=== PATIENT | female | born 1970 | race Caucasian/White ===

== ENCOUNTER 2016-10-15 17:36 | Emergency (ER) | payer OTHER ==
[~2016-10-15] VITALS: Ht 160 cm; Wt 104.3 kg
--- NOTE | ~2016-10-15 | EKG ---
[address] [place] [address] ELECTROCARDIOGRAM REPORT Name: ZEYNEP WHYTE [id number] Admission: 10/15/16 Attend Phys: Discharge: 10/15/16 Date of : 68 Report #: [id number] THIS REPORT FOR: //name// [facility] ED Test Date: 2016-10-15 Test Time: 18:51:31 Pat Name: ZEYNEP WHYTE Department: Room: Gender: F Sales Associate Cashier: KKODJOVI : 1970 Requested By: Rita Olivares Order Number: [id number] MD: Valentín Slaughter Measurements Intervals [place] Rate: 75 P: 29 SD: 139 QRS: -14 QRSD: 92 T: 90 QT: 437 QTc: 489 Interpretive Statements Sinus rhythm LVH with secondary repolarization abnormality Borderline prolonged QT interval No previous ECG available for comparison Electronically Signed On 10-16-2016 7:53:13 CDT by Valentín Slaughter [email or web address] <ELECTRONICALLY SIGNED> By: Valentín Slaughter MD, [facility] 10/16/16 0753 1851 50 Valentín Slaughter MD, FACC /EPI
[~2016-10-15 17:36] MED LIST: ACETAMINOPHEN325 M1 PO; ALPRAZOLAM 0.50.5 M1 PO; AMITRIPTYLINE H50 M3 PO; AMOXICILLIN875 MG PO; AUGMENTIN 875875 MG PO; BIOTIN-D1 GM; CIPROFLOXACIN500 M1 PO; CLIMARA 0.00.0375 MG TD; DILAUDID 2 MG TA2 MG PO; DILAUDID 4 MG TA4 M1 PO; FLEXERIL PO; FLOMAX0.4 MG PO; FLUOXETINE HCL40 MG PO; HYDROCODONE-AP1 EAC6 PO; HYOSCYAMINE0.125 M1 SL; IBUPROFEN 600600 M1 PO; LEVAQUIN 500 M500 M1 PO; LIPITOR20 MG; LISINOPRIL-HCT1 EAC1; LISINOPRIL10 MG; LOPRESSOR25 PO; MEGA BIOTIN10000 MCG PO; MULTIVITAMINS; NORCO 10-325 T1 EACH PO; NORCO 5-325 TA1 EACH PO; NORFLEX100 MG PO; PERCOCET 10-321 EACH PO; PERCOCET 5-3251 EACH PO; PERCOCET PO; PHENAZOPYRIDIN200 M2 PO; PROZAC20 MG PO; RANITIDINE HCL300 M1 PO; REGLAN 10 MG TA10 MG PO; REQUIP3 MG PO; ROXICODONE15 M1 PO; ROXICODONE5 MG PO; TRAMADOL 50 MG50 MG PO; VISTARIL 25 MG25 M1 PO; VITAMIN B-12100 MC1 PO; VITAMIN D 5050000 I1; VITAMIN D250000 UNIT PO; VITAMIN D35000 UNIT PO; XANAX 0.25 MG0.25 MG PO; ZOFRAN ODT4 MG PO; ZOFRAN4 MG PO
[2016-10-15 17:53] LABS: URINE BILIRUBIN NEGATIVE (Negative); URINE BLOOD NEGATIVE (Negative); URINE COLOR YELLOW; URINE GLUCOSE-RANDOM* NEGATIVE (Negative); URINE KETONES NEGATIVE (Negative); URINE LEUKOCYTES-REFLEX TRACE (Negative); URINE PROTEIN (DIPSTICK) 1+ (Negative); URINE SPECIFIC GRAVITY >= 1.030 (1.003-1.035)
[2016-10-15 18:05] LABS: HYALINE CASTS 4-10 Moderate /LPF (None Seen); SQUAMOUS 4-10 Moderate /LPF (0-3)
[2016-10-15 18:06] LABS: CALCIUM OXALATE 4-10 Moderate /LPF (None Seen); URINE RBC 0-2 Rare /HPF (0-2); URINE WBC-REFLEX 6-15 Few /HPF (0-5)
[2016-10-15 18:31] LABS: ABSOLUTE NEUTROPHILS 6.4 thou/uL (1.4-8.2); BASOPHILS 0.5 % (0.0-2.0); EOSINOPHILS 0.1 % (0.0-3.0); HEMATOCRIT 28.6 % (37.0-47.0); HEMOGLOBIN 9.1 gm/dL (12.0-15.0); LYMPHOCYTES 10.5 % (24.0-44.0); MANUAL DIFF NO; MCH 25.5 pg (26.0-34.0); MCHC 31.8 g/dL (28.0-37.0); MCV 80.1 fL (80.0-100.0); MONOCYTES 6.1 % (1.0-8.0); PLATELET COUNT 346 thou/uL (150-400); POLYS 82.8 % (36.0-66.0); RBC 3.57 mil/uL (4.20-5.00); RDW 20.1 % (10.5-14.5); WBC 7.8 thou/uL (4.0-11.0)
[2016-10-15 18:37] LABS: CALCIUM 8.3 mg/dL (8.5-10.1); CREATININE 1.2 mg/dL (0.6-1.0)
[2016-10-15 18:39] LABS: POTASSIUM 2.9 mmol/L (3.5-5.1)
[2016-10-15 18:41] LABS: TOTAL BILIRUBIN 0.4 mg/dL (<0.1-1.0); TOTAL PROTEIN 7.1 g/dL (6.4-8.2)
[2016-10-15] MEDS ORDERED: ONDANSETRON HCL4 M2 PO (19:05)
[2016-10-15] MEDS ORDERED: NORCO 10-325 T1 EACH PO (19:05)
[2016-10-15] MEDS ORDERED: CIPRO500 MG PO (19:05)
[2016-10-15] MEDS ORDERED: KLOR-CON 1010 MEQ PO (19:05)
[2016-10-15] MEDS ORDERED: DIFLUCAN200 MG PO (19:05)
[2016-10-15] MEDS ORDERED: VITAMIN D250000 UNIT (19:08)
[2016-10-15] MEDS ORDERED: CYMBALTA60 MG PO (19:09)
[2016-10-15] MEDS ORDERED: FLEXERIL (19:12)
[2016-10-15] MEDS ORDERED: STOOL SOFTENER100 MG (19:14)
[2016-10-15 19:53] VITALS: BP 141/86
== END 2016-10-15 19:53 | disposition home or self-care (01) ==
LOC: ER 17:36
PROVIDERS: Emergency Medicine; Nurse Practitioner Family
DX: N12 Tubulo-interstitial nephritis, not specified as acute or chronic (principal); D64.9 Anemia, unspecified; B37.9 Candidiasis, unspecified; E87.6 Hypokalemia; E28.2 Polycystic ovarian syndrome; F32.9 Major depressive disorder, single episode, unspecified; G25.81 Restless legs syndrome; I10 Essential (primary) hypertension; E78.00 Pure hypercholesterolemia, unspecified; G47.30 Sleep apnea, unspecified; Z88.8 Allergy status to other drugs, medicaments and biological substances; Z87.442 Personal history of urinary calculi; Z96.0 Presence of urogenital implants; Z90.711 Acquired absence of uterus with remaining cervical stump; Z90.721 Acquired absence of ovaries, unilateral; Z90.49 Acquired absence of other specified parts of digestive tract; Z88.2 Allergy status to sulfonamides; Z87.891 Personal history of nicotine dependence

== ENCOUNTER 2016-11-26 21:47 | Emergency (ER) | payer OTHER ==
[~2016-11-26] VITALS: Ht 160 cm; Wt 108.9 kg
[~2016-11-26 21:47] MED LIST changes: +CIPRO500 MG PO; +CYMBALTA60 MG PO; +DIFLUCAN200 MG PO; +FLEXERIL; +KLOR-CON 1010 MEQ PO; +ONDANSETRON HCL4 M2 PO; +STOOL SOFTENER100 MG; +VITAMIN D250000 UNIT
[2016-11-26 22:53] LABS: BASOPHILS 0.9 % (0.0-2.0); EOSINOPHILS 2.4 % (0.0-3.0); HEMATOCRIT 27.1 % (37.0-47.0); HEMOGLOBIN 8.5 gm/dL (12.0-15.0); LYMPHOCYTES 31.5 % (24.0-44.0); MCH 25.7 pg (26.0-34.0); MCHC 31.6 g/dL (28.0-37.0); MCV 81.3 fL (80.0-100.0); MONOCYTES 7.4 % (1.0-8.0); POLYS 57.8 % (36.0-66.0); RBC 3.33 mil/uL (4.20-5.00); RDW 20.1 % (10.5-14.5); WBC 9.5 thou/uL (4.0-11.0)
[2016-11-26 23:01] LABS: CALCIUM 8.7 mg/dL (8.5-10.1); CREATININE 0.9 mg/dL (0.6-1.0); POTASSIUM 3.3 mmol/L (3.5-5.1)
[2016-11-26 23:04] LABS: URINE BILIRUBIN NEGATIVE (Negative); URINE BLOOD NEGATIVE (Negative); URINE COLOR YELLOW; URINE GLUCOSE-RANDOM* NEGATIVE (Negative); URINE KETONES NEGATIVE (Negative); URINE NITRITE NEGATIVE (Negative); URINE PROTEIN (DIPSTICK) TRACE (Negative); URINE SPECIFIC GRAVITY >= 1.030 (1.003-1.035); URINE UROBILINOGEN 0.2 E.U./dl (0.2-1.0)
[2016-11-26 23:05] LABS: TOTAL BILIRUBIN 0.3 mg/dL (<0.1-1.0); TOTAL PROTEIN 7.1 g/dL (6.4-8.2)
[2016-11-26 23:08] LABS: MANUAL DIFF NO
[2016-11-26 23:33] LABS: PLATELET COUNT ND thou/uL (150-400)
[2016-11-26] MEDS ORDERED: PHENERGAN 25 MG25 M1 PO (23:40)
[2016-11-27] VITALS: BP 160/70
== END 2016-11-27 00:08 | disposition home or self-care (01) ==
LOC: ER 21:47
PROVIDERS: Physician Assistant
DX: R10.30 Lower abdominal pain, unspecified (principal); G89.29 Other chronic pain; D64.9 Anemia, unspecified; M54.5 Low back pain; R11.0 Nausea; F32.9 Major depressive disorder, single episode, unspecified; E78.00 Pure hypercholesterolemia, unspecified; F10.99 Alcohol use, unspecified with unspecified alcohol-induced disorder; Z90.49 Acquired absence of other specified parts of digestive tract; Z87.442 Personal history of urinary calculi; Z90.711 Acquired absence of uterus with remaining cervical stump; Z88.2 Allergy status to sulfonamides; Z88.8 Allergy status to other drugs, medicaments and biological substances; Z87.891 Personal history of nicotine dependence

== ENCOUNTER 2017-07-09 20:37 | Emergency (ER) | payer OTHER ==
[~2017-07-09] VITALS: Ht 160 cm; Wt 95.3 kg
[~2017-07-09 20:37] MED LIST changes: +NEURONTIN 300300 M1 PO; +PHENERGAN 25 MG25 M1 PO; +POTASSIUM20 PO; +PROMS25 WY RECTAL
[2017-07-09] MEDS ORDERED: MOBIC15 MG PO (22:17)
[2017-07-09] MEDS ORDERED: FLEXERIL PO (22:17)
[2017-07-09 22:27] VITALS: BP 110/69
[2018-02-22] MEDS ORDERED: HYDROCODONE-AP1 EAC6 PO (18:50)
[2018-02-22] MEDS ORDERED: LIDOCAINE PAIN1 EACH TOP (18:50)
[2018-02-22] MEDS ORDERED: POTASSIUM20 PO (18:52)
== END 2017-07-09 22:45 | disposition home or self-care (01) ==
LOC: ER 20:37
DX: G89.29 Other chronic pain (principal); M54.5 Low back pain; E28.2 Polycystic ovarian syndrome; F32.9 Major depressive disorder, single episode, unspecified; G25.81 Restless legs syndrome; I10 Essential (primary) hypertension; E78.00 Pure hypercholesterolemia, unspecified; G47.30 Sleep apnea, unspecified; Z88.2 Allergy status to sulfonamides; Z87.442 Personal history of urinary calculi; Z90.711 Acquired absence of uterus with remaining cervical stump; Z90.49 Acquired absence of other specified parts of digestive tract; Z88.8 Allergy status to other drugs, medicaments and biological substances; Z87.891 Personal history of nicotine dependence

== ENCOUNTER 2018-02-16 14:13 | Emergency (ER) | payer OTHER ==
[~2018-02-16] VITALS: Ht 160 cm; Wt 86.2 kg
--- NOTE | ~2018-02-16 | EKG ---
[place] [address] [facility] [place] [address] ELECTROCARDIOGRAM REPORT Name: ZEYNEP WHYTE [id number] Admission: 02/16/18 Attend Phys: Discharge: Date of : 68 Report #: [id number] THIS REPORT FOR: //name// [facility] ED Test Date: 2018-02-16 Test Time: 15:27:14 Pat Name: ZEYNEP WHYTE Department: Room: Gender: F Certified Ophthalmic Surgical Assistant: VIVIAN : 1970 Requested By: Kris Myers Order Number: [id number] MD: Valentín Slaughter Measurements Intervals [place] Rate: 91 P: 37 [place]: 139 QRS: -31 QRSD: 94 T: 86 QT: 374 QTc: 461 Interpretive Statements Sinus rhythm Left axis deviation Poor R wave progression Compared to ECG 10/15/2016 18:51:31 Left-axis deviation now present QT interval has shortened Electronically Signed On 02-16-2018 16:58:04 CDT by Valentín Slaughter [email or web address] <ELECTRONICALLY SIGNED> By: Valentín Slaughter MD, [facility] 02/16/18 1658 1527 152 Valentín Slaughter MD, [facility] /EPI
[~2018-02-16 14:13] MED LIST changes: +MOBIC15 MG PO
[2018-02-16 16:19] LABS: HEMATOCRIT 40.8 % (37.0-47.0); HEMOGLOBIN 13.4 gm/dL (12.0-15.0); MCH 28.4 pg (26.0-34.0); MCHC 32.8 g/dL (28.0-37.0); MCV 86.6 fL (80.0-100.0); RBC 4.71 mil/uL (4.20-5.00); RDW 20.2 % (10.5-14.5); WBC 8.5 thou/uL (4.0-11.0)
[2018-02-16 16:39] LABS: PROTIME 10.1 Seconds (9.3-11.4)
[2018-02-16] MEDS ORDERED: ULTRAM 50MG TAB50 MG PO (17:54)
[2018-02-16 18:46] VITALS: BP 107/81
[2018-02-22] MEDS ORDERED: HYDROCODONE-AP1 EAC6 PO (18:50)
[2018-02-22] MEDS ORDERED: LIDOCAINE PAIN1 EACH TOP (18:50)
[2018-02-22] MEDS ORDERED: POTASSIUM20 PO (18:52)
== END 2018-02-16 18:48 | disposition home or self-care (01) ==
LOC: ER 14:13
PROVIDERS: Emergency Medicine
DX: S06.0X0A Concussion without loss of consciousness, initial encounter (principal); W08.XXXA Fall from other furniture, initial encounter; Y93.89 Activity, other specified; Y92.89 Other specified places as the place of occurrence of the external cause; Y99.8 Other external cause status; F32.9 Major depressive disorder, single episode, unspecified; I10 Essential (primary) hypertension; E78.00 Pure hypercholesterolemia, unspecified; G47.30 Sleep apnea, unspecified; Z90.49 Acquired absence of other specified parts of digestive tract; Z90.710 Acquired absence of both cervix and uterus; Z87.891 Personal history of nicotine dependence; Z88.2 Allergy status to sulfonamides; Z88.8 Allergy status to other drugs, medicaments and biological substances

== ENCOUNTER 2019-05-11 19:44 | Inpatient (IN) | payer OTHER ==
[~2019-05-11] VITALS: Ht 160 cm; Wt 88.9 kg
[~2019-05-11 19:44] MED LIST changes: +LIDOCAINE PAIN1 EACH TOP; +ULTRAM 50MG TAB50 MG PO
[2019-05-11 19:45] VITALS: BP 168/103
[2019-05-11 20:24] LABS: URINE BILIRUBIN NEGATIVE (Negative); URINE BLOOD 2+ (Negative); URINE CLARITY CLEAR; URINE COLOR YELLOW; URINE GLUCOSE-RANDOM* NEGATIVE (Negative); URINE KETONES NEGATIVE (Negative); URINE LEUKOCYTES-REFLEX NEGATIVE (Negative); URINE NITRITE-REFLEX NEGATIVE (Negative); URINE PROTEIN (DIPSTICK) NEGATIVE (Negative); URINE SPECIFIC GRAVITY 1.025 (1.005-1.035)
[2019-05-11 20:33] LABS: CALCIUM OXALATE 0-3 Few /LPF (None Seen); URINE RBC 3-10 Few /HPF (0-2)
[2019-05-11 20:34] LABS: BACTERIA-REFLEX 1-9 Few /HPF (None Seen); CASTS None Seen /LPF (None Seen); SQUAMOUS 0-3 Few /LPF (0-3); URINE WBC-REFLEX None Seen /HPF (0-5)
[2019-05-11 21:04] LABS: ABSOLUTE NEUTROPHILS 4.1 thou/uL (1.4-8.2); EOSINOPHILS 1.9 % (0.0-3.0); HEMATOCRIT 34.4 % (37.0-47.0); HEMOGLOBIN 10.8 gm/dL (12.0-15.0); LYMPHOCYTES 34.6 % (24.0-44.0); MCH 24.7 pg (26.0-34.0); MCHC 31.5 g/dL (28.0-37.0); MCV 78.4 fL (80.0-100.0); PLATELET COUNT 389 thou/uL (150-400); POLYS 54.5 % (36.0-66.0); RBC 4.39 mil/uL (4.20-5.00); RDW 16.6 % (10.5-14.5); WBC 7.5 thou/uL (4.0-11.0)
[2019-05-11 21:11] LABS: CALCIUM 8.8 mg/dL (8.5-10.1); CREATININE 0.9 mg/dL (0.6-1.0); POTASSIUM 3.4 mmol/L (3.5-5.1)
[2019-05-11 21:17] LABS: ALBUMIN 3.5 g/dL (3.4-5.0); TOTAL BILIRUBIN 0.4 mg/dL (<0.1-1.0); TOTAL PROTEIN 7.8 g/dL (6.4-8.2)
[2019-05-12 00:38] VITALS: BP 142/75
[2019-05-12 00:47] VITALS: BP 141/81
[2019-05-12 01:00] VITALS: BP 152/72
[2019-05-12] MEDS ORDERED: LISINOPRIL40 MG PO (01:07)
[2019-05-12] MEDS ORDERED: AMLODIPINE BESY10 MG PO (01:07)
[2019-05-12] MEDS ORDERED: NEURONTIN600 MG PO (01:08)
[2019-05-12] MEDS ORDERED: AMITRIPTYLINE100 MG PO (01:09)
[2019-05-12] MEDS ORDERED: ALPRAZOLAM 0.50.5 M1 PO (01:10)
[2019-05-12] MEDS ORDERED: REGLAN 5 MG TAB5 MG PO (01:11)
[2019-05-12] MEDS ORDERED: FLEXERIL PO (01:12)
[2019-05-12] MEDS ORDERED: HYDROXYZINE HCL50 MG PO (01:12)
[2019-05-12] MEDS ORDERED: PROTONIX40 M2 PO (01:13)
[2019-05-12] MEDS ORDERED: TRAZODONE HCL100 MG PO (01:13)
[2019-05-12] MEDS ORDERED: KLOR-CON 10 ER10 MEQ PO (01:14)
[2019-05-12] MEDS ORDERED: B-12 DOTS500 MCG PO (01:16)
[2019-05-12 05:44] LABS: HEMATOCRIT 34.5 % (37.0-47.0); HEMOGLOBIN 10.6 gm/dL (12.0-15.0); MCH 24.6 pg (26.0-34.0); MCHC 30.8 g/dL (28.0-37.0); MCV 79.8 fL (80.0-100.0); RBC 4.32 mil/uL (4.20-5.00); RDW 16.8 % (10.5-14.5); WBC 4.8 thou/uL (4.0-11.0)
[2019-05-12 05:54] LABS: CALCIUM 8.7 mg/dL (8.5-10.1); CREATININE 0.8 mg/dL (0.6-1.0); POTASSIUM 3.3 mmol/L (3.5-5.1)
[2019-05-12 06:32] LABS: % SATURATION 7 % (20-39); IRON 30 ug/dL (50-170); TIBC 446 ug/dL (250-450)
[2019-05-12 07:20] VITALS: BP 133/78
--- NOTE | 2019-05-12 07:30 | NUR ---
ADMITTED FROM ER UNDER 'S CARE. SEEN BY SCRAPER MEAT WIRELINE FIELD OPERATOR FOR . ISO FOR POSSIBLE C.DIFF. VSS. PAIN ADDRESSED TO SCRAPER MEAT AND MORPHINE ADMIN. FALL PRECAUTIONS PLACED D/T RECENT FALL FROM BED. NO S/S ACUTE DISTRESS NOTED OR REPORTED AT THIS TIME. CARE TRANSFERRED TO DAY RN AT THIS TIME.
[2019-05-12 08:39] LABS: FERRITIN 23 ng/mL (8-252)
--- NOTE | 2019-05-12 12:03 | NUR ---
PT A&OX4, VSS, PAIN IN ABDOMEN. PATIENT COMPLAINS OF GENERALIZED ITCHING, DOCTOR NOTIFIED. PATIENT STATES ABDOMEN TENDER TO TOUCH AT RIGHT LOWER QUANDRANT, ADOMEN SOFT, LOOSE STOOLS, 05/11/19. PATIENT ON CLEAR LIQUIDS. COMPLAINT OF NAUSEA THIS AM AND ZOFRAN GIVEN, NO VOMITING. NO SIGNS OF DISTRESS. WILL CONTINUE TO MONITOR.
[2019-05-12 15:37] VITALS: BP 103/59
[2019-05-12 20:00] VITALS: BP 134/62
--- NOTE | 2019-05-13 02:33 | NUR ---
ASSESSMENT: PT REMAIN ALERT AND ORIENT TIMES THREE,. UP TO BR WITH STEADY GAIT. PT IS ON A CLEAR LIQ DIET. PT IS SCHEDULED FOR A COLONOSCOPY 05/13/19. NO BOWEL PREP ORDERS GIVEN. ENCOURAGED TO NOT EAT POST MN. NO STOOLS THIS SHIFT, PENDING OCCULT/C-DIFF NEEDED,. REMAIN IN ISOLATION FOR POSSIBLE C-DIFF. VSS, AFEBRILE. SLOW PROGRESS TOWARDS DC GOALS, WILL CONTINUE TO MONITOR.,
--- NOTE | 2019-05-13 08:42 | P ---
[facility] [place] [address] PROCEDURE REPORT Name: ZEYNEP WHYTE Room #: 458-P [facility] IN M.R.#: [id number] Admission: 05/12/19 Attend Phys: Cory Farrar MD Discharge: Date of : 68 Report #: [id number] THIS REPORT FOR: //name// CC: [facility] physician/PCP CORY Farrar DATE OF SERVICE: 05/12/2019 PATIENT OF: Dr. Cory Farrar. PROCEDURE PERFORMED: Diagnostic esophagogastroduodenoscopy. INDICATION FOR PROCEDURE: This patient had sudden onset of nausea, vomiting, epigastric and chest pain along with right flank pain. She has a history of gastroparesis. She also has an elevated alkaline phosphatase of 200 of uncertain etiology and an elevated GGTP. She has a microcytic anemia of unknown etiology. 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 Informed consent for this procedure was obtained prior to the administration of any medication. The risks of the procedure, which include bleeding, perforation, infection, complications of sedation, and the possibility I could miss something were explained to the patient and she has indicated her consent by signing. Anesthesia kindly provided deep sedation for this procedure. DESCRIPTION OF PROCEDURE: The patient in the supine position, elevated head, the Olympus upper videoscope was introduced through the upper esophageal sphincter and advanced under direct visualization to as far as I could advance the scope to the hub into the jejunum. Findings are noted on withdrawal of the scope. The visualized portions of the jejunum up to the gastrojejunostomy appeared normal. This is a Billroth I type anastomosis. The gastrojejunostomy anastomosis itself is intact and no abnormalities are seen. The remains of the small segment of stomach appears normal. The GE junction appears normal. The esophageal mucosa appears normal throughout its entirety. The scope was withdrawn. The patient went to the recovery area in stable condition. She tolerated the procedure well. IMPRESSION: Normal esophagogastrojejunostomy to the depth of the scope. RECOMMENDATIONS: At this point, as we do not see the etiology of her discomfort on this exam, would be to proceed with colonoscopy to evaluate the thickened loops of small bowel are seen in her distal ileum further. We will give her a [address] [address] PROCEDURE REPORT Name: ZEYNEP WHYTE Room #: 458-P [facility] IN M.R.#: [id number] Admission: 05/12/19 Attend Phys: Cory Farrar MD Discharge: Date of : 68 Report #: [id number] colonoscopy prep today and plan on doing the colonoscopy tomorrow. Thank you very much once again for allowing me to participate in her care. <ELECTRONICALLY SIGNED> By: Sangita Mcdonald DO 05/13/19 0842 1256 1716 Sangita Mcdonald DO /nt
[2019-05-13 08:58] VITALS: BP 123/67
--- NOTE | 2019-05-13 12:20 | EKG ---
[address] [place] [address] ELECTROCARDIOGRAM REPORT Name: ZEYNEP WHYTE Room #: 458-P [facility] IN M.R.#: [id number] Admission: 05/12/19 Attend Phys: Cory Farrar MD Discharge: Date of : 68 Report #: [id number] THIS REPORT FOR: //name// [facility] ED Test Date: 2019-05-11 Test Time: 23:21:58 Pat Name: ZEYNEP WHYTE Department: Room: 458 Gender: F Social Group Worker: daniel : 1970 Requested By: Ignacia Benitez Order Number: [id number] MD: Danial Morris Measurements Intervals [place] Rate: 99 P: 23 [place]: 132 QRS: -29 QRSD: 95 T: 76 QT: 381 QTc: 489 Interpretive Statements Sinus rhythm Borderline left axis deviation Poor R-wave progression Nonspecific ST segment abnormalities Compared to ECG 02/22/2018 18:20:54 ST (T wave) deviation now present Electronically Signed On 05-13-2019 12:19:57 SCALES INSPECTOR by Danial Morris [email or web address] <ELECTRONICALLY SIGNED> By: Danial Morris MD 05/13/19 1219 20 20 Danial Morris MD /KAYLEN
[2019-05-13 17:09] VITALS: BP 137/88
[2019-05-13 19:20] VITALS: BP 132/78
--- NOTE | 2019-05-13 20:36 | NUR ---
Received awake on bed. Due medications given as prescribed. A+Ox4. Vital signs stable. On room air. On nothing per orem since midnight- for colonoscopy today, consent signed. With NS at 125cc/hr, infusing well at L AC. Complained of pain, due PRN pain meds given as prescribed. Maintained on isolation- ? cdiff, unable to send specimen yet, last bowel movement was on . Checked pt's EMAR, no bowel prep done; called GI re: pt's schedule and if to proceed with colonoscopy- will call me back- pt updated. Called gastro staff again re: colonoscopy- as per GONZALO, will not do procedure today, will inform GI doctor. FLY Lind also informed what happened and said pt can have clear liquids now, Dr Mcdonald will talk to pt later. Pt's colonoscopy rescheduled for tomorrow 05/14, bowel prep ordered and started. Pt asked if pain meds could be increased- Dr Farrar informed and orders made. Able to go to the bathroom with AO1. To continue monitoring patient. No nausea and vomiting noted the whole shift.
[2019-05-14 03:20] VITALS: BP 120/63
[2019-05-14 04:17] LABS: HEMATOCRIT 31.6 % (37.0-47.0); HEMOGLOBIN 9.7 gm/dL (12.0-15.0); MCH 24.5 pg (26.0-34.0); MCHC 30.6 g/dL (28.0-37.0); RBC 3.95 mil/uL (4.20-5.00); RDW 16.7 % (10.5-14.5); WBC 3.8 thou/uL (4.0-11.0)
[2019-05-14 04:40] LABS: CALCIUM 8.5 mg/dL (8.5-10.1); CREATININE 0.8 mg/dL (0.6-1.0); POTASSIUM 3.3 mmol/L (3.5-5.1)
--- NOTE | 2019-05-14 05:40 | NUR ---
Pt. rested quietly at intervals during the night when checked on during frequent rounds. She has been given pain meds (see emar) for c/o abdominal pain with some relief noted. She has been up to the bedside comode and stooling from bowel prep. No c/o nausea. Bed alarm is on.
[2019-05-14 08:00] VITALS: BP 134/85
[2019-05-14] MEDS ORDERED: HYDROCODON-ACE1 EAC7 PO (10:13)
[2019-05-14 10:36] VITALS: BP 134/85
--- NOTE | 2019-05-14 12:05 | NUR ---
Received awake on bed. On nothing per orem- pt informed and aware. On room air. Vital signs stable. Pt scheduled to have colonoscopy today- report given to GI staff, consent to be signed downstairs. Pt due for stool sample- none collected overnight, pt was not able to submit sample to me during my shift since her urine comes out whenever she has a bowel movement. Assisted in ADLs. Pt brought down to GI via stretcher, transferred safely. Came back from GI lab, colonoscopy done. No significant findings noted as relayed by GI staff, pt can have clear liquids now then regular diet for lunch. No nausea, no vomiting, no abdominal pain noted. Pt seen by Dr Farrar- discharge orders made. Discharge instructions, follow up schedule and prescription given and instructed.
== END 2019-05-14 14:25 | disposition home or self-care (01) | DRG 392 ==
LOC: ER 19:44 → EROBS 05-12 00:28 → 4W 05-12 00:28
PROVIDERS: Emergency Medicine; Internal Medicine Gastroenterology; Nurse Practitioner Family; Physician Assistant; ADMIT Hospitalist
PROC: 0DHA3UZ Insertion of Feeding Device into Jejunum, Percutaneous Approach (ICD-10-PCS; principal; 2019-05-12)
PROC: 0DJD8ZZ Inspection of Lower Intestinal Tract, Via Natural or Artificial Opening Endoscopic (ICD-10-PCS; 2019-05-14)
DX: K52.9 Noninfective gastroenteritis and colitis, unspecified (principal); E28.2 Polycystic ovarian syndrome; G93.2 Benign intracranial hypertension; G25.81 Restless legs syndrome; I10 Essential (primary) hypertension; Z96.21 Cochlear implant status; Z96.0 Presence of urogenital implants; F32.9 Major depressive disorder, single episode, unspecified; E78.00 Pure hypercholesterolemia, unspecified; E78.5 Hyperlipidemia, unspecified; G47.33 Obstructive sleep apnea (adult) (pediatric); K31.84 Gastroparesis; D50.9 Iron deficiency anemia, unspecified; K64.8 Other hemorrhoids; Z53.29 Procedure and treatment not carried out because of patient's decision for other reasons; Z87.442 Personal history of urinary calculi; Z98.84 Bariatric surgery status; Z88.2 Allergy status to sulfonamides; Z88.8 Allergy status to other drugs, medicaments and biological substances; Z91.048 Other nonmedicinal substance allergy status; Z90.711 Acquired absence of uterus with remaining cervical stump; Z90.49 Acquired absence of other specified parts of digestive tract; Z79.899 Other long term (current) drug therapy; Z87.891 Personal history of nicotine dependence
CPT/HCPCS: 10040; 62110; 62900; 70005

== ENCOUNTER 2019-05-17 17:27 | Emergency (ER) | payer OTHER ==
[~2019-05-17] VITALS: Ht 160 cm; Wt 86.2 kg
[~2019-05-17 17:27] MED LIST changes: +AMITRIPTYLINE100 MG PO; +AMLODIPINE BESY10 MG PO; +B-12 DOTS500 MCG PO; +HYDROCODON-ACE1 EAC7 PO; +HYDROXYZINE HCL50 MG PO; +KLOR-CON 10 ER10 MEQ PO; +LISINOPRIL40 MG PO; +NEURONTIN600 MG PO; +PROTONIX40 M2 PO; +REGLAN 5 MG TAB5 MG PO; +TRAZODONE HCL100 MG PO
[2019-05-17 18:11] LABS: URINE BILIRUBIN NEGATIVE (Negative); URINE BLOOD NEGATIVE (Negative); URINE CLARITY CLOUDY; URINE COLOR YELLOW; URINE GLUCOSE-RANDOM* NEGATIVE (Negative); URINE KETONES NEGATIVE (Negative); URINE NITRITE-REFLEX NEGATIVE (Negative); URINE PROTEIN (DIPSTICK) NEGATIVE (Negative); URINE SPECIFIC GRAVITY 1.025 (1.005-1.035); URINE UROBILINOGEN 0.2 E.U./dl (0.2-1.0)
[2019-05-17 18:12] LABS: URINE LEUKOCYTES-REFLEX 2+ (Negative)
[2019-05-17 18:23] LABS: CALCIUM OXALATE >10 Many /LPF (None Seen)
[2019-05-17 18:24] LABS: BACTERIA-REFLEX 1-9 Few /HPF (None Seen); CASTS None Seen /LPF (None Seen); SQUAMOUS 0-3 Few /LPF (0-3); URINE RBC None Seen /HPF (0-2)
[2019-05-17 18:34] LABS: HEMATOCRIT 36.2 % (37.0-47.0); HEMOGLOBIN 11.2 gm/dL (12.0-15.0); MCH 24.9 pg (26.0-34.0); MCHC 30.9 g/dL (28.0-37.0); MCV 80.5 fL (80.0-100.0); RBC 4.5 mil/uL (4.20-5.00); RDW 16.6 % (10.5-14.5); WBC 6.7 thou/uL (4.0-11.0)
[2019-05-17 18:42] LABS: CALCIUM 9.3 mg/dL (8.5-10.1); CREATININE 0.9 mg/dL (0.6-1.0); POTASSIUM 3.2 mmol/L (3.5-5.1)
[2019-05-17 18:49] LABS: ALBUMIN 3.5 g/dL (3.4-5.0); TOTAL BILIRUBIN 0.4 mg/dL (<0.1-1.0); TOTAL PROTEIN 7.9 g/dL (6.4-8.2)
[2019-05-17] MEDS ORDERED: ONDANSETRON HCL4 M2 PO (21:12)
[2019-05-17] MEDS ORDERED: NORCO 5-325 TA1 EAC1 PO (21:12)
[2019-05-17] MEDS ORDERED: KEFLEX500 M1 PO (21:12)
[2019-05-17 21:30] VITALS: BP 136/76
== END 2019-05-17 21:27 | disposition home or self-care (01) ==
LOC: ER 17:27
PROVIDERS: Emergency Medicine
DX: N39.0 Urinary tract infection, site not specified (principal); N81.84 Pelvic muscle wasting; K52.9 Noninfective gastroenteritis and colitis, unspecified; I10 Essential (primary) hypertension; E78.00 Pure hypercholesterolemia, unspecified; G47.30 Sleep apnea, unspecified; G25.81 Restless legs syndrome; F32.9 Major depressive disorder, single episode, unspecified; Z87.442 Personal history of urinary calculi; Z88.1 Allergy status to other antibiotic agents; Z88.2 Allergy status to sulfonamides; Z90.49 Acquired absence of other specified parts of digestive tract; Z87.891 Personal history of nicotine dependence

== ENCOUNTER 2019-11-10 11:09 | Emergency (ER) | payer OTHER ==
[~2019-11-10] VITALS: Ht 157.5 cm; Wt 81.7 kg
[~2019-11-10 11:09] MED LIST changes: +KEFLEX500 M1 PO; +NORCO 5-325 TA1 EAC1 PO
[2019-11-10 11:40] LABS: URINE BILIRUBIN NEGATIVE (Negative); URINE BLOOD 2+ (Negative); URINE CLARITY CLEAR; URINE COLOR YELLOW; URINE GLUCOSE-RANDOM* NEGATIVE (Negative); URINE KETONES NEGATIVE (Negative); URINE LEUKOCYTES-REFLEX TRACE (Negative); URINE NITRITE-REFLEX NEGATIVE (Negative); URINE PROTEIN (DIPSTICK) NEGATIVE (Negative); URINE SPECIFIC GRAVITY 1.015 (1.005-1.035); URINE UROBILINOGEN 0.2 E.U./dl (0.2-1.0)
[2019-11-10 11:40] LABS: ABSOLUTE NEUTROPHILS 3.9 thou/uL (1.4-8.2); BASOPHILS 0.4 % (0.0-2.0); EOSINOPHILS 2.6 % (0.0-3.0); HEMATOCRIT 39.7 % (37.0-47.0); HEMOGLOBIN 13.2 gm/dL (12.0-15.0); MCH 28.5 pg (26.0-34.0); MCHC 33.2 g/dL (28.0-37.0); MONOCYTES 5.9 % (1.0-8.0); PLATELET COUNT 300 thou/uL (150-400); POLYS 62.1 % (36.0-66.0); RBC 4.62 mil/uL (4.20-5.00); WBC 6.3 thou/uL (4.0-11.0)
[2019-11-10 11:48] LABS: CASTS None Seen /LPF (None Seen); SQUAMOUS 4-10 Moderate /LPF (0-3); URINE RBC 3-10 Few /HPF (0-2); URINE WBC-REFLEX 0-5 Rare /HPF (0-5)
[2019-11-10 11:49] LABS: BACTERIA-REFLEX None Seen /HPF (None Seen); CRYSTALS None Seen /LPF (None Seen)
[2019-11-10] MEDS ORDERED: SERTRALINE HCL100 MG PO (11:50)
[2019-11-10] MEDS ORDERED: BUTALBIT-ACETA1 EACH PO (11:50)
[2019-11-10] MEDS ORDERED: METOCLOPRAMIDE 55 M1 PO (11:51)
[2019-11-10] MEDS ORDERED: ELETRIPTAN HBR40 MG PO (11:52)
[2019-11-10 12:04] LABS: CALCIUM 8.4 mg/dL (8.5-10.1); CREATININE 0.9 mg/dL (0.6-1.0); TOTAL BILIRUBIN 0.6 mg/dL (<0.1-1.0); TOTAL PROTEIN 7.3 g/dL (6.4-8.2)
[2019-11-10 19:17] VITALS: BP 131/80
== END 2019-11-10 20:01 | disposition home or self-care (01) ==
LOC: ER 11:09
PROVIDERS: Emergency Medicine
DX: R10.2 Pelvic and perineal pain (principal); R10.30 Lower abdominal pain, unspecified; R11.2 Nausea with vomiting, unspecified; I10 Essential (primary) hypertension; E78.00 Pure hypercholesterolemia, unspecified; F17.210 Nicotine dependence, cigarettes, uncomplicated; Z79.899 Other long term (current) drug therapy; Z88.2 Allergy status to sulfonamides; Z88.1 Allergy status to other antibiotic agents; Z98.890 Other specified postprocedural states; Z98.84 Bariatric surgery status; Z90.49 Acquired absence of other specified parts of digestive tract; Z90.711 Acquired absence of uterus with remaining cervical stump